=== PATIENT | female | born 1985 | race Caucasian/White ===

== ENCOUNTER 2018-07-09 12:05 | Observation (INO) | payer MEDICAID ==
[~2018-07-09] VITALS: Ht 162.6 cm; Wt 113.9 kg
[2018-07-09] MEDS ORDERED: PNV1TABL50 PO (13:02)
== END 2018-07-09 14:15 | disposition home or self-care (01) ==
LOC: 8 EST LDRP 12:05
PROVIDERS: ADMIT Obstetrics & Gynecology; ATTEND Obstetrics & Gynecology
DX: Z34.93 Encounter for supervision of normal pregnancy, unspecified, third trimester (principal); Z3A.37 37 weeks gestation of pregnancy
CPT/HCPCS: 59025; 76815; 76818; 99281; G0378

== ENCOUNTER 2018-07-21 01:44 | Inpatient (IN) | payer MEDICAID ==
[~2018-07-21] VITALS: Ht 162.6 cm; Wt 115.2 kg
[~2018-07-21 01:44] MED LIST: PNV1TABL50 PO
[2018-07-21] MEDS ORDERED: DEXT 5%/LR + PITOCIN 20UNITS/L 1,000 ML IV SCH (02:18)
[2018-07-21] MEDS ORDERED: CARBOPROST TROMETHAMINE 250 MCG/ML AMPUL IM PRN (02:30)
[2018-07-21] MEDS ORDERED: METHYLERGONOVINE MALEATE 0.2 MG/ML IM PRN (02:30)
[2018-07-21] MEDS: LACTATED RINGERS 1,000 ML IV SCH ×2 (02:59→03:25)
[2018-07-21 03:43] LABS: BASOPHILS % 0.5 % (0.0-2.0); EOSINOPHILS % 0.7 % (0.0-5.0); HEMATOCRIT. 36.2 % (36.0-48.0); HEMOGLOBIN. 12.6 g/dL (12.0-16.0); LYMPHOCYTES % 18.8 % (20.0-50.0); MEAN CORPUSCULAR HEMOGLOBIN 30.3 pg (28.0-32.0); MEAN CORPUSCULAR VOLUME 87.2 fL (81.0-99.0); MEAN PLATELET VOLUME 9.6 fl (7.4-10.4); MONOCYTES % 5.8 % (2.0-8.0); NEUTROPHILS % 74.2 % (40.0-76.0); PLATELET 231 x1000/uL (130-400); RED BLOOD CELL COUNT 4.15 mill/uL (4.2-5.4)
[2018-07-21 04:03] LABS: INR 0.9; PARTIAL THROMBOPLASTIN TIME 28.5 sec (23.4-31.0); PROTHROMBIN TIME 9.6 sec (9.6-11.0)
[2018-07-21 04:13] LABS: CLARITY URINE CLEAR (CLEAR); COLOR URINE YELLOW (YELLOW); KETONES URINE TRACE (NEGATIVE); LEUKOCYTE ESTERASE URINE NEGATIVE (NEGATIVE); NITRITE URINE NEGATIVE (NEGATIVE); OCCULT BLOOD URINE NEGATIVE (NEGATIVE); PROTEIN URINE NEGATIVE (NEGATIVE); SPECIFIC GRAVITY URINE 1.015 (1.005-1.030); UROBILINOGEN URINE 0.2 E.U./dL (0.2-1.0)
[2018-07-21 04:21] LABS: *AMPHETAMINES SCREEN URINE NEGATIVE (NEGATIVE); *BARBITURATES SCREEN URINE NEGATIVE (NEGATIVE); *BENZODIAZEPINES SCREEN URINE NEGATIVE (NEGATIVE); *COCAINE SCREEN URINE NEGATIVE (NEGATIVE); METHADONE URINE SCREEN NEGATIVE (NEGATIVE); OPIATES URINE SCREEN NEGATIVE (NEGATIVE)
[2018-07-21 04:22] LABS: CANNABINOID URINE SCREEN NEGATIVE (NEGATIVE); PHENCYCLIDINE URINE SCREEN NEGATIVE (NEGATIVE)
[2018-07-21 04:23] LABS: HEPATITIS B SURFACE ANTIGEN NEGATIVE
[2018-07-21] MEDS ORDERED: CITRIC ACID/SODIUM CITRATE SOLN 30ML UDC PO SCH (12:00)
[2018-07-21] MEDS ORDERED: ACETAMINOPHEN WITH CODEINE 300/30MG TABLET PO PRN (12:45)
[2018-07-21] MEDS ORDERED: HYDROMORPHONE HCL/PF 2MG/ML CPJ IM PRN (12:45)
[2018-07-21] MEDS ORDERED: RHO(D) IMMUNE GLOBULIN 300 MCG/SYR IM PRN (12:45)
[2018-07-21] MEDS ORDERED: IBUPROFEN 400MG TABLET PO PRN (12:45)
[2018-07-21] MEDS ORDERED: DEXT 5%/LR + PITOCIN 20UNITS/L 1,000 ML IV ONE (13:00)
[2018-07-21 15:10] VITALS: BP_SYST 132; BP_SYST 135; BP_DIAS 64; BP_DIAS 67
[2018-07-21 20:00] VITALS: BP 116/79
[2018-07-22 00:59] VITALS: BP 117/62
[2018-07-22] MEDS ORDERED: DIPHENHYDRAMINE 25MG CAPSULE PO PRN (01:10)
[2018-07-22 04:00] VITALS: BP 115/70
[2018-07-22 06:23] LABS: BASOPHILS % 0.3 % (0.0-2.0); EOSINOPHILS % 0.7 % (0.0-5.0); HEMATOCRIT. 31.4 % (36.0-48.0); HEMOGLOBIN. 10.8 g/dL (12.0-16.0); LYMPHOCYTES % 12.5 % (20.0-50.0); MEAN CORPUSCULAR HEMOGLOBIN 30.4 pg (28.0-32.0); MEAN CORPUSCULAR VOLUME 88.1 fL (81.0-99.0); MEAN PLATELET VOLUME 9.3 fl (7.4-10.4); MONOCYTES % 8.1 % (2.0-8.0); NEUTROPHILS % 78.4 % (40.0-76.0); PLATELET 186 x1000/uL (130-400); RED BLOOD CELL COUNT 3.56 mill/uL (4.2-5.4); RED CELL DISTRIBUTION WIDTH 13.8 % (11.6-14.6)
[2018-07-22 07:42] VITALS: BP 123/52
[2018-07-22] MEDS: IBUPROFEN 800MG TABLET PO PRN (15:23)
[2018-07-22 16:10] VITALS: BP 111/69
[2018-07-22 19:20] VITALS: BP 137/89
[2018-07-22 23:35] VITALS: BP 130/82
[2018-07-23 05:00] VITALS: BP 129/78
[2018-07-23] MEDS: IBUPROFEN 800MG TABLET PO PRN (05:08)
[2018-07-23 07:44] VITALS: BP 114/53
[2018-07-23] MEDS ORDERED: BISACODYL 10MG SUPP PR SCH (09:00)
== END 2018-07-23 12:25 | disposition home or self-care (01) | DRG 540 ==
LOC: 8 EST LDRP 01:44 → OBSVTOIN 01:44 → 8EST 13:10
PROVIDERS: ADMIT Obstetrics & Gynecology; ATTEND Obstetrics & Gynecology
PROC: 10D00Z1 Extraction of Products of Conception, Low, Open Approach (ICD-10-PCS; principal; 2018-07-21)
DX: O34.211 Maternal care for low transverse scar from previous cesarean delivery (principal); O24.12 Pre-existing type 2 diabetes mellitus, in childbirth; E66.9 Obesity, unspecified; O41.03X0 Oligohydramnios, third trimester, not applicable or unspecified; O99.214 Obesity complicating childbirth; E11.9 Type 2 diabetes mellitus without complications; D64.9 Anemia, unspecified; O90.81 Anemia of the puerperium; Z37.0 Single live birth; Z3A.39 39 weeks gestation of pregnancy; Z83.3 Family history of diabetes mellitus; Z82.49 Family history of ischemic heart disease and other diseases of the circulatory system
CPT/HCPCS: 36415; 80305; 82947; 82962; 86592; 86703; 86762; 86850; 86900; 86920; 87340; 88307; 99281; G0378; J2590; J7120; Q0163; A4315